=== PATIENT | male | born 1980 | race American Indian/Alaskan Native ===

== ENCOUNTER 2019-08-23 16:52 | Emergency (ER) | payer SELFPAY ==
[2019-08-23] MEDS ORDERED: ONDANSETRON 4 MG ODT TAB PO ONE (19:43)
--- NOTE | 2019-08-23 19:43 | Event Note ---
ED Screening Note ED Screening Note: states he has N/V for two days no diarrhea abd cramping no fever PMHx none no allergies to meds This initial assessment/diagnostic orders/clinical plan/treatment(s) is/are subject to change based on patients health status, clinical progression and re- assessment by fellow clinical providers in the ED. Further treatment and workup at subsequent clinical providers discretion. Patient/guardian urged not to elope from the ED as their condition may be serious if not clinically assessed and managed. Initial orders include: labs, UA, zofran given
[2019-08-23 21:31] LABS: Basophils % (Auto) 0.5 % (0.0-1.8); Hematocrit 46.6 % (35.5-45.6); Hemoglobin 15.3 gm/dl (11.8-15.2); Lymphocytes # (Auto) 0.9 K/mm3 (1.2-5.4); Lymphocytes % (Auto) 11.1 % (13.4-35.0); Mean Corpuscular HGB Conc 33 % (32-34); Mean Corpuscular Volume 91 fl (84-94); Monocytes # (Auto) 0.7 K/mm3 (0.0-0.8); Monocytes % (Auto) 8.4 % (0.0-7.3); Platelet Count 270 K/mm3 (140-440); Red Blood Count 5.12 M/mm3 (3.65-5.03); Red Cell Distribution Width 13.6 % (13.2-15.2)
[2019-08-23 21:55] LABS: Alanine Aminotransferase 33 units/L (7-56); Albumin 4.9 g/dL (3.9-5); BUN/Creatinine Ratio 18; Blood Urea Nitrogen 21 mg/dL (9-20); Hemolysis Index 24
[2019-08-23] MEDS ORDERED: ONDANSETRON 4 MG/2 ML INJ IV ONE (23:58)
[2019-08-23] MEDS ORDERED: MORPHINE 4 MG/1 ML INJ IV ONE (23:58)
[2019-08-23] MEDS ORDERED: SODIUM CHLORIDE 0.9% 1000 ML 1,000 ML IV ONE (23:58)
--- NOTE | 2019-08-24 01:27 | XRay Report ---
CLINICAL DATA: n/v TECHNICAL DATA: PA chest, AP supine abdomen, upright or left lateral decubitus abdomen. FINDINGS: The cardiac silhouette and pulmonary vasculature are normal. The lungs are clear and hyper expanded. There is no evidence of focal consolidation, pneumothorax, or pleural effusion. Bowel gas pattern is nonobstructive. There is no free intraperitoneal air. There are no abnormal calc ifications. IMPRESSION: No acute radiographic abnormality of the chest and abdomen. Signer Name: Alon Beckman MD Signed: 08/24/2019 1:22 AM Workstation Name: [id number]
--- NOTE | 2019-08-24 01:41 | Emergency Department Report ---
ED N/V/D HPI - General Chief complaint: Nausea/Vomiting/Diarrhea Stated complaint: VOMIT/WEAK/DEHYDRATED Time Seen by Provider: 08/23/19 19:42 Source: patient Mode of arrival: Ambulatory Limitations: No Limitations - History of Present Illness Initial comments: This is a 39-year-old male nontoxic, well nourished in appearance, no acute signs of distress presents to the ED with c/o of generalized weakness, nausea and vomiting 2 days. Patient describes vomiting as food content. Patient denies any abdominal pain, chest pain, short of breath, fever, chills, headache, stiff neck, numbness or tingling. Patient denies any diarrhea or constipation. Patient denies any recent travels. Patient denies any drug allergies significant past medical history. MD complaint: nausea, vomiting -: days(s) (2) Associated Abdominal Pain: No Radiation: none Severity: mild Pain Scale: 0 Improves with: none Worsens with: none Associated Symptoms: nausea/vomiting. denies: myalgias, chest pain, cough, diaphoresis, fever/chills, headaches, loss of appetite, malaise, rash, dysuria, shortness of breath, syncope, weakness - Related Data Previous Rx's Medication Instructions Recorded Last Taken Type Ondansetron [Zofran Odt] 4 mg PO Q8HR PRN #20 tab.rapdis 08/24/19 Unknown Rx Allergies Allergy/AdvReac Type Severity Reaction Status Date / Time No Known Allergies Allergy Unverified 08/23/19 16:55 ED Review of Systems ROS: Stated complaint: VOMIT/WEAK/DEHYDRATED Other details as noted in HPI Constitutional: denies: chills, fever Eyes: denies: eye pain, eye discharge, vision change ENT: denies: ear pain, throat pain Respiratory: denies: cough, shortness of breath, wheezing Cardiovascular: denies: chest pain, palpitations Endocrine: no symptoms reported Gastrointestinal: nausea, vomiting. denies: abdominal pain, diarrhea Genitourinary: denies: urgency, dysuria Musculoskeletal: denies: back pain, joint swelling, arthralgia Skin: denies: rash, lesions Neurological: denies: headache, weakness, paresthesias Psychiatric: denies: anxiety, depression Hematological/Lymphatic: denies: easy bleeding, easy bruising ED Past Medical Hx - Past Medical History Previous Medical History?: No - Surgical History Past Surgical History?: No - Social History Smoking Status: Current Every Day Smoker Substance Use Type: Alcohol, Marijuana - Medications Home Medications: Home Medications Medication Instructions Recorded Confirmed Last Taken Type Ondansetron [Zofran Odt] 4 mg PO Q8HR PRN #20 tab.nidhidis 08/24/19 Unknown Rx ED Physical Exam - General Limitations: No Limitations General appearance: alert, in no apparent distress - Head Head exam: Present: atraumatic, normocephalic - Eye Eye exam: Present: normal appearance - Neck Neck exam: Present: normal inspection, full ROM. Absent: tenderness, meningismus, lymphadenopathy - Respiratory Respiratory exam: Present: normal lung sounds bilaterally. Absent: respiratory distress, wheezes, rales, rhonchi, stridor, chest wall tenderness, accessory muscle use, decreased breath sounds, prolonged expiratory - Cardiovascular Cardiovascular Exam: Present: regular rate, normal rhythm, normal heart sounds. Absent: bradycardia, tachycardia, irregular rhythm, systolic murmur, diastolic murmur, rubs, gallop - GI/Abdominal GI/Abdominal exam: Present: soft, normal bowel sounds. Absent: distended, tenderness, guarding, rebound, rigid, diminished bowel sounds, hyperactive bowel sounds, hypoactive bowel sounds, mass, bruit, pulsatile mass - Extremities Exam Extremities exam: Present: normal inspection, full ROM - Back Exam Back exam: Present: normal inspection, full ROM. Absent: tenderness, CVA tenderness (R), CVA tenderness (L), muscle spasm, paraspinal tenderness, vertebral tenderness, rash noted - Neurological Exam Neurological exam: Present: alert, oriented X3, normal gait - Psychiatric Psychiatric exam: Present: normal affect, normal mood - Skin Skin exam: Present: warm, dry, intact, normal color. Absent: rash ED Course Vital Signs 08/23/19 08/24/19 08/24/19 19:43 00:45 06:00 Temperature 98.0 F 98.6 F 98.4 F Pulse Rate 64 62 59 L Respiratory 19 16 16 Rate Blood Pressure 111/79 Blood Pressure 116/75 108/68 [Left] O2 Sat by Pulse 100 100 97 Oximetry - Reevaluation(s) Reevaluation #1: 08/24/19 01:43 Patient is speaking in full sentences with no signs of distress noted. ED Medical Decision Making - Lab Data Result diagrams: 08/23/19 20:40 08/23/19 20:40 - Medical Decision Making This is a 39-year-old male that presents with nausea and vomiting. Patient is stable and was examined by me. There is no abdominal tenderness. Negative signs of symptoms of appendicitis, cholecystitis or acute abdomen. Labs obtained. UA obtained. Xr abdomen/chest xray obtained and dictated by the radiologist. Patient is notified of the report with no questions noted by the patient. Vital signs are stable prior to discharge. Patient received Zofran and 1L Normal saline in the ED which patient stated symptoms has resovled and subsided. A by mouth challenge has been obtained and patient tolerated well with no nausea vomiting. Patient was also instructed to Follow-up with a primary care doctor in 3-5 days or if symptoms worsen and continue return to emergency room as soon as possible. At time of discharge, the patient does not seem toxic or ill in appearance. No acute signs of distress noted. Patient agrees to discharge treatment plan of care. No further questions noted by the patient. Critical care attestation.: If time is entered above; I have spent that time in minutes in the direct care of this critically ill patient, excluding procedure time. ED Disposition Clinical Impression: Nausea & vomiting Qualifiers: Vomiting type: unspecified Vomiting Intractability: non-intractable Qualified Code(s): R11.2 - Nausea with vomiting, unspecified Disposition: DC-01 TO HOME OR SELFCARE Is pt being admited?: No Does the pt Need Aspirin: No Condition: Stable Instructions: Acute Nausea and Vomiting (ED) Additional Instructions: Follow-up with a primary care doctor in 3-5 days or if symptoms worsen and continue return to emergency room as soon as possible. Prescriptions: Ondansetron [Zofran Odt] 4 mg PO Q8HR PRN #20 tab.rapdis PRN Reason: Nausea Referrals: PRIMARY CAREMD [Primary Care Provider] - 3-5 Days BERYL CISNEROS MD [Staff Physician] - 3-5 Days [facility] [Outside] - 3-5 Days [facility] [Provider Group] - 3-5 Days Forms: Work/School Release Form(ED)
[2019-08-24 02:24] LABS: Bilirubin,Urine NEG (Negative); Blood,Urine SM (Negative); Color,Urine Yellow (Yellow); Mucus,Urine 3+ /HPF; Sperm,Urine FEW /HPF (NP); Urobilinogen,Urine < 2.0 mg/dL (<2.0)
[2019-08-24 06:02] VITALS: BP 108/68
== END 2019-08-24 07:20 | disposition home or self-care (01) ==
LOC: ED 16:52
DX: R11.2 Nausea with vomiting, unspecified (principal); F17.200 Nicotine dependence, unspecified, uncomplicated; F12.10 Cannabis abuse, uncomplicated; Z79.899 Other long term (current) drug therapy
CPT/HCPCS: 36415; 74022; 80053; 81001; 83690; 85025; 96361; 96374; 96375; 99284; J2270; J2405; J7030; Q0162

== ENCOUNTER 2021-09-14 20:55 | Emergency (ER) | payer SELFPAY ==
[2021-09-14] MEDS ORDERED: IBUPROFEN 600 MG TAB PO ONE (20:57)
[2021-09-14] MEDS ORDERED: ACETAMINOPHEN 500 MG TAB PO ONE (20:57)
[2021-09-14 21:02] VITALS: BP 102/60
--- NOTE | 2021-09-14 21:02 | Emergency Department Report ---
ED Lower Extremity HPI - General Chief Complaint: Extremity Injury, Lower Stated Complaint: RIGHT LITTLE TOE INJURY - History of Present Illness Initial Comments: Patient is a 41-year-old -F[place]ish male with no past medical history presents to the ED with complaint of acute onset persistent right foot pain and right 5th toe pain after he accidentally hit the foot of the bed when walking out of bed about 12 hours ago. Patient states that he noticed there was mild deformity of the right 5th toe with worsening pain in the last 8 hours. Patient states that he he decided come to the ED for evaluation suspecting that he may have had a fracture of the right 5th toe. Patient denies numbness and tingling or weakness of right foot, dizziness, syncope, seizures, nausea and vomiting, chest pain or shortness of breath, head or neck injuries and fall. MD Complaint: foot injury (Right foot pain, right 5th toe pain) -: Sudden, hour(s) (>12 ), This morning Injury: Foot: Right (Pain), Toes: Right (5TH TOE PAIN) Type of Injury: blunt Place: home Severity: severe Severity scale (0 -10): 7 Improves With: nothing Worsens With: weight bearing, movement, palpation Context: direct blow Associated Symptoms: snap/pop sensation, swelling, able to partially bear weight. denies: numbness, tingling - Related Data Previous Rx's Medication Instructions Recorded Last Taken Type Ondansetron [Zofran Odt] 4 mg PO Q8HR PRN #20 tab.rapdis 08/24/19 Unknown Rx HYDROcodone/APAP 5-325 [Tuttle 1 each PO Q6HR PRN #12 tablet 09/14/21 Unknown Rx 5/325] Ibuprofen [Motrin] 600 mg PO Q8H PRN #30 tablet 09/14/21 Unknown Rx Allergies Allergy/AdvReac Type Severity Reaction Status Date / Time No Known Allergies Allergy Unverified 08/23/19 16:55 ED Review of Systems ROS: Stated complaint: RIGHT LITTLE TOE INJURY Other details as noted in HPI Constitutional: denies: chills, fever Eyes: denies: eye pain, eye discharge, vision change ENT: denies: ear pain, throat pain Respiratory: denies: cough, shortness of breath, wheezing Cardiovascular: denies: chest pain, palpitations Endocrine: no symptoms reported Gastrointestinal: denies: abdominal pain, nausea, diarrhea Genitourinary: denies: urgency, dysuria Musculoskeletal: joint swelling (Right foot and right 5th toe swelling), arthralgia (Right foot and right 5th toe pain). denies: back pain Skin: denies: rash, lesions Neurological: denies: headache, weakness, paresthesias Psychiatric: denies: anxiety, depression Hematological/Lymphatic: denies: easy bleeding, easy bruising ED Past Medical Hx - Social History Smoking Status: Current Every Day Smoker Substance Use Type: Alcohol, Marijuana - Medications Home Medications: Home Medications Medication Instructions Recorded Confirmed Last Taken Type Ondansetron [Zofran Odt] 4 mg PO Q8HR PRN #20 tab.rapdis 08/24/19 Unknown Rx HYDROcodone/APAP 5-325 [Tuttle 1 each PO Q6HR PRN #12 tablet 09/14/21 Unknown Rx 5/325] Ibuprofen [Motrin] 600 mg PO Q8H PRN #30 tablet 09/14/21 Unknown Rx ED Physical Exam - General General appearance: alert, in no apparent distress - Head Head exam: Present: atraumatic, normocephalic, normal inspection - Eye Eye exam: Present: normal appearance, PERRL, EOMI Pupils: Present: normal accommodation - ENT ENT exam: Present: normal exam, normal orophraynx, mucous membranes moist, TM's normal bilaterally, normal external ear exam - Neck Neck exam: Present: normal inspection, full ROM. Absent: tenderness - Respiratory Respiratory exam: Present: normal lung sounds bilaterally. Absent: respiratory distress, wheezes, rales, rhonchi, chest wall tenderness, accessory muscle use, decreased breath sounds, prolonged expiratory - Cardiovascular Cardiovascular Exam: Present: regular rate, normal rhythm, normal heart sounds. Absent: systolic murmur, diastolic murmur, rubs, gallop - GI/Abdominal GI/Abdominal exam: Present: soft, normal bowel sounds. Absent: tenderness, guarding, rebound, hyperactive bowel sounds, hypoactive bowel sounds, organomegaly - Extremities Exam Extremities exam: Present: normal inspection, full ROM, tenderness (Palpable right 5th toe and right foot tenderness), normal capillary refill, joint swelling (Mild right 5th and right foot swelling and tenderness), other (Palpable distal COVID-19 positive test (U07.1, COVID-19) with Viral Sepsis (A41.89 other specified sepsis)(If respiratory failure present, add as separate assessment) ). Absent: pedal edema, calf tenderness - Back Exam Back exam: Present: normal inspection, full ROM. Absent: tenderness, CVA tenderness (L), muscle spasm, paraspinal tenderness, vertebral tenderness - Neurological Exam Neurological exam: Present: alert, oriented X3, CN II-XII intact, normal gait, reflexes normal - Psychiatric Psychiatric exam: Present: normal affect, normal mood - Skin Skin exam: Present: warm, dry, intact, normal color. Absent: rash ED Course Vital Signs 09/14/21 20:58 Temperature 98.5 F Pulse Rate 97 H Respiratory 18 Rate Blood Pressure 102/60 [Right] O2 Sat by Pulse 100 Oximetry ED Lower Extremity MDM - Radiology Data Radiology results: report reviewed, image reviewed [facility] [address] [place] [address] XRay Report Signed Patient: HENNY BLANCA MR#: [id number] : 1980 Acct:[id number] Age/Sex: 41 / M ADM Date: 09/14/21 Loc: ED Attending Dr: Ordering Physician: OMEGA SANDOVAL Date of Service: 09/14/21 Procedure(s): XR foot 3+V RT Accession Number(s): [id number] cc: OMEGA SANDOVAL Fluoro Time In Minutes: RIGHT FOOT 3 VIEW(S) INDICATION / CLINICAL INFORMATION: RIGHT 5TH TOE PAIN - TRAUMATIC INJURY COMPARISON: None available. FINDINGS: BONES / JOINT(S): There is a minimally displaced fracture of the fifth toe proximal phalanx. No involvement of the MTP joint. SOFT TISSUES: Mild soft tissue swelling of the fifth toe. ADDITIONAL FINDINGS: None. Signer Name: Rohan Hernández MD Signed: 09/14/2021 9:29 PM Workstation Name: [id number] Transcribed By: DB Dictated By: ROHAN HERNÁNDEZ MD Electronically Authenticated By: ROHAN HERNÁNDEZ MD Signed Date/Time: 09/14/212128 DD/ 26 TD/TT: - Medical Decision Making This is a 41-year-old -Finnish male with no past medical history presents to the ED with complaint of acute onset persistent right foot pain and right 5th toe pain after he accidentally hit the foot of the bed when walking out of bed about 12 hours ago. Patient states that he noticed there was mild deformity of the right 5th toe with worsening pain in the last 8 hours. Patient states that he he decided come to the ED for evaluation suspecting that he may have had a fracture of the right 5th toe. In the ED, patient is alert and oriented x3 and is not in distress. Patient was treated for pain in the ED and right foot x-ray showed a minimally displaced fracture of the fifth toe proximal phalanx. No involvement of the MTP joint. It also showed mild soft tissue swelling of the fifth toe. The patient's right fifth toe was bran taped with the fourth toe and the patient fitted with postop shoe. Patient was therefore discharged home on pain medications and advised to follow-up with orthopedic surgeon on-call Dr. Josue for further evaluation in 3 to 5 days. Patient was advised return to the ED immediately if symptoms get worse. - Differential Diagnosis Foot fracture; 5th toe fracture; foot contusion; foot sprain; toe sprain Critical care attestation.: If time is entered above; I have spent that time in minutes in the direct care of this critically ill patient, excluding procedure time. ED Disposition Clinical Impression: Contusion of right foot including toes Qualifiers: Encounter type: initial encounter Qualified Code(s): S90.31XA - Contusion of right foot, initial encounter; S90.121A - Contusion of right lesser toe(s) without damage to nail, initial encounter Sprain of interphalangeal joint of fifth toe of right foot Qualifiers: Encounter type: initial encounter Qualified Code(s): S93.514A - Sprain of interphalangeal joint of right lesser toe(s), initial encounter Closed fracture of phalanx of right fifth toe Qualifiers: Encounter type: initial encounter Qualified Code(s): S92.501A - Displaced unspecified fracture of right lesser toe(s), initial encounter for closed fracture Disposition: 01 HOME / SELF CARE / HOMELESS Is pt being admited?: No Does the pt Need Aspirin: No Condition: Stable Instructions: Toe Fracture, [id number], Foot Contusion, [id number], Contusion, [id number] Additional Instructions: The right foot x-ray showed a minimally displaced fracture of right fifth toe. Therefore take medications as needed for pain, drink plenty of fluids and follow-up with the orthopedic surgeon on-call Dr. Josue for further evaluation. Contacted Joselo's office first in the morning on Wednesday, September 15, 2021 to schedule a follow-up appointment. Return to the ED immediately if symptoms get worse. Prescriptions: Ibuprofen [Motrin] 600 mg PO Q8H PRN #30 tablet PRN Reason: Pain HYDROcodone/APAP 5-325 [Tuttle 5/325] 1 each PO Q6HR PRN #12 tablet PRN Reason: Pain Referrals: STORMY JOSUE MD [Staff Physician] - 3-5 Days Time of Disposition: 21:49 Print Language: YAKUT
--- NOTE | 2021-09-14 21:33 | XRay Report ---
RIGHT FOOT 3 VIEW(S) INDICATION / CLINICAL INFORMATION: RIGHT 5TH TOE PAIN - TRAUMATIC INJURY COMPARISON: None available. FINDINGS: BONES / JOINT(S): There is a minimally displaced fracture of the fifth toe proximal phalanx. No invol vement of the MTP joint. SOFT TISSUES: Mild soft tissue swelling of the fifth toe. ADDITIONAL FINDINGS: None. Signer Name: Rohan Hernández MD Signed: 09/14/2021 9:29 PM Workstation Name: [id number]
== END 2021-09-14 23:17 | disposition home or self-care (01) ==
LOC: ED 20:55
DX: S90.31XA Contusion of right foot, initial encounter (principal); S90.121A Contusion of right lesser toe(s) without damage to nail, initial encounter; S93.514A Sprain of interphalangeal joint of right lesser toe(s), initial encounter; S92.501A Displaced unspecified fracture of right lesser toe(s), initial encounter for closed fracture; Y93.89 Activity, other specified; Y92.89 Other specified places as the place of occurrence of the external cause; Y99.8 Other external cause status
CPT/HCPCS: 99283